=== PATIENT | female | born 1940 | race Caucasian/White ===

== ENCOUNTER 2023-01-18 10:46 | Emergency (ER) | payer OTHER ==
[~2023-01-18] VITALS: Ht 149.9 cm; Wt 63.5 kg
[~2023-01-18 10:46] MED LIST: ACETAMINOPHEN-1 EAC2 PO; ATACAND32 MG PO; BACTRIM DS TAB1 EACH PO; CARVEDILOL3.125 MG PO; CATAFLAN PO; CHILDREN'S ASPI81 MG PO; CLEOCIN HCL300 MG PO; COLACE100 MG PO; GABAPEN PO; GABAPENTIN100 M2 PO; MEDROLPACK PO; NEURONTIN800 MG PO; RESTORIL PO; SIMVAST PO; XANAX XR0.5 MG PO; ZOFRAN8 MG PO; ZOLOFT25 MG PO
[2023-01-18] MEDS ORDERED: TYLENOL ARTHRI650 MG PO (13:53)
== END 2023-01-18 14:17 | disposition home or self-care (01) ==
LOC: ER 10:46
DX: M54.31 Sciatica, right side (principal); Z88.0 Allergy status to penicillin; I10 Essential (primary) hypertension
CPT/HCPCS: 96372; 99284; J2360; J3301